=== PATIENT | female | born 1990 | race Caucasian/White ===

== ENCOUNTER 2021-03-26 22:22 | Inpatient (IN) ==
[2021-03-27 00:52] LABS: Urine Appearance Cloudy; Urine Bilirubin Negative (Negative); Urine Blood 1+ (Negative); Urine Color Yellow; Urine Glucose Negative (Negative); Urine Ketones Negative (Negative); Urine Nitrite Negative (Negative); Urine Protein Negative (Negative); Urine Specific Gravity 1.016 (1.002-1.030); Urine Urobilinogen Negative (Negative)
[2021-03-27 00:55] LABS: ALT 12 U/L (7-52); AST 17 U/L (13-39); Albumin/Globulin Ratio 1.4 (1-3); Alkaline Phosphatase 71 U/L (34-104); Anion Gap 6 mmol/L (2-11); Blood Urea Nitrogen 11 mg/dL (6-24); CO2 Carbon Dioxide 23 mmol/L (22-32); Calcium 8.8 mg/dL (8.6-10.3); Chloride 108 mmol/L (101-111); EGFR African American 128.1 (>60); EGFR Non-African American 105.9 (>60); Globulin 2.8 g/dL (2-4); Glucose 95 mg/dL (70-100); Potassium 3.8 mmol/L (3.5-5.0); Sodium 137 mmol/L (135-145); Total Protein 6.8 g/dL (6.4-8.9)
[2021-03-27 00:58] LABS: Urine Bacteria 1+ (Absent); Urine Red Blood Cell Trace(0-2/hpf) (Absent); Urine Squamous Epithelial Cell Present (Absent); Urine White Blood Cell Trace(0-5/hpf) (Absent)
[2021-03-27 01:01] LABS: HCG Pregnancy < 0.60 mIU/mL
[2021-03-27 01:04] LABS: ABS Basophils 0.2 10^3/ul (0-0.2); ABS Eosinophils 0.2 10^3/ul (0-0.6); ABS Lymphocytes 3.1 10^3/ul (1.0-4.8); ABS Monocytes 0.7 10^3/ul (0-0.8); ABS Neutrophils 5.2 10^3/ul (1.5-7.7); Eosinophil % 1.9 %; Hematocrit 35 % (35-47); Hemoglobin 11.4 g/dL (12.0-16.0); Lymphocyte % 33.3 %; Mean Corpuscular HGB Conc 32 g/dL (31-36); Mean Corpuscular Hemoglobin 24 pg (27-31); Mean Corpuscular Volume 74 fL (80-97); Mean Platelet Volume 9.5 fL (7.4-10.4); Nucleated Red Blood Cells % 0.1; Platelet Count 293 10^3/uL (150-450); Red Blood Count 4.76 10^6 /uL (3.70-4.87); Red Cell Distribution Width 17 % (10-15); White Blood Count 9.3 10^3/uL (3.5-10.8)
[2021-03-27 01:05] LABS: Urine Benzodiazepine Screen None Detected (None Detect); Urine Cannabinoids Screen None Detected (None Detect); Urine Opiates Screen None Detected (None Detect)
[2021-03-27 01:41] LABS: Acetaminophen < 15 mcg/mL; Alcohol, S < 10 mg/dL (<10); Salicylate < 2.50 mg/dL (<30)
[2021-03-27 01:56] LABS: TSH Ultra Thyroid Stim Horm 1.89 mcIU/mL (0.34-5.60)
[2021-03-27] MEDS ORDERED: Al Hydrox/Mg Hydrox/Simet LIQ 30 ML UDC PO PRN (04:39)
[2021-03-27] MEDS: NORETHINDR PO SCH (11:35)
[2021-03-27] MEDS: ETH ESTRADIOL PO SCH (11:35)
[2021-03-27] MEDS: Nicotine PATCH 14 MG/24 HR PATCH TRANSDERM SCH (11:37)
[2021-03-27] MEDS: Vitamin THERAPEUTIC TAB PO SCH (11:37)
[2021-03-28] MEDS: ETH ESTRADIOL PO SCH (08:44)
[2021-03-28] MEDS: Vitamin THERAPEUTIC TAB PO SCH (08:44)
[2021-03-28] MEDS: Nicotine PATCH 14 MG/24 HR PATCH TRANSDERM SCH (08:44)
[2021-03-28] MEDS: NORETHINDR PO SCH (08:44)
[2021-03-29] MEDS: Nicotine PATCH 14 MG/24 HR PATCH TRANSDERM SCH (08:37)
[2021-03-29] MEDS: NORETHINDR PO SCH (08:37)
[2021-03-29] MEDS: ETH ESTRADIOL PO SCH (08:37)
[2021-03-29] MEDS: Vitamin THERAPEUTIC TAB PO SCH (08:38)
[2021-03-29 08:40] LABS: HDL Cholesterol 46.3 mg/dL
[2021-03-30] MEDS: Nicotine GUM 2MG FRUIT FLAVOR PO PRN ×3 (06:05→17:56)
[2021-03-30] MEDS: ETH ESTRADIOL PO SCH (08:36)
[2021-03-30] MEDS: NORETHINDR PO SCH (08:36)
[2021-03-30] MEDS: Vitamin THERAPEUTIC TAB PO SCH (08:36)
[2021-03-30] MEDS: Nicotine PATCH 14 MG/24 HR PATCH TRANSDERM SCH (08:36)
[2021-03-31] MEDS: Nicotine GUM 2MG FRUIT FLAVOR PO PRN (05:12)
[2021-03-31] MEDS: Vitamin THERAPEUTIC TAB PO SCH (08:23)
[2021-03-31] MEDS: Nicotine PATCH 14 MG/24 HR PATCH TRANSDERM SCH (08:23)
[2021-03-31 08:46] VITALS: BP 124/74
== END 2021-03-31 11:43 | disposition home or self-care (01) ==
LOC: ED 22:22 → BSU 03-27 02:30
PROVIDERS: ADMIT Psychiatry & Neurology Psychiatry; ATTEND Psychiatry & Neurology Psychiatry